=== PATIENT | female | born 1995 | race Caucasian/White ===

== ENCOUNTER 2017-06-14 06:42 | Emergency (ER) | payer SELFPAY ==
[~2017-06-14] VITALS: Ht 152.4 cm; Wt 74.8 kg
[2017-06-14 07:53] VITALS: BP 114/61
== END 2017-06-14 08:27 | disposition home or self-care (01) ==
LOC: ER 06:42
DX: J20.9 Acute bronchitis, unspecified (principal)
CPT/HCPCS: 71046